=== PATIENT | female | born 1995 | race Caucasian/White ===

== ENCOUNTER 2018-12-28 19:56 | Emergency (ER) | payer MEDICAID ==
--- NOTE | 2018-12-28 20:11 | ERPHSYRPT ---
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 3 days ago pt noticed skin and eyes turning yellow. stools a little clinical audiologist in color and urine darker than usual. pts sig other with same sx. pt works at [employer]. Timing/Duration: day(s) (flu like sx for 7 days ago, jaundice for 3 days. ), gradual onset, worse Severity: moderate Associated Symptoms: nausea, abdominal pain (mild), heartburn, loss of appetite , malaise Allergies/Adverse Reactions: Sulfa (Sulfonamide Antibiotics) Allergy (Verified 12/28/18 20:13) Home Medications: No Reportable Medications [No Reported Medications] 12/28/18 [History] Hx Tetanus, Diphtheria Vaccination/Date Given: Yes (2008) Hx Influenza Vaccination/Date Given: No Hx Pneumococcal Vaccination/Date Given: No - Review of Systems Constitutional: Malaise Eyes: No Symptoms Ears, Nose, & Throat: No Symptoms Respiratory: No Symptoms Cardiac: No Symptoms Abdominal/Gastrointestinal: No Symptoms Genitourinary Symptoms: No Symptoms Musculoskeletal: No Symptoms Skin: Other (jaundice) Neurological: No Symptoms Psychological: Drug Abuse Endocrine: No Symptoms Hematologic/Lymphatic: No Symptoms Immunological/Allergic: No Symptoms All Other Systems: Reviewed and Negative - Past Medical History Pertinent Past Medical History: Yes Neurological History: No Pertinent History ENT History: No Pertinent History Cardiac History: No Pertinent History Respiratory History: No Pertinent History Endocrine Medical History: No Pertinent History Musculoskeletal History: No Pertinent History GI Medical History: GERD, Gallbladder Disease History: No Pertinent History Psycho-Social History: Anxiety, Depression, Panic Disorder Female Reproductive Disorders: No Pertinent History - Past Surgical History Past Surgical History: No - Social History Smoking Status: Current every day smoker Exposure to second hand smoke: Yes Drug Use: none Patient Lives Alone: No - Nursing Vital Signs Nursing Vital Signs: Initial Vital Signs Temperature 98.2 F 12/28/18 20:14 Pulse Rate 98 H 12/28/18 20:14 Respiratory Rate 18 12/28/18 20:14 Blood Pressure 132/82 12/28/18 20:14 O2 Sat by Pulse Oximetry 98 12/28/18 20:14 Pain Scale Pain Intensity 0 - Physical Exam General Appearance: no apparent distress, alert, anxiety Eye Exam: PERRL/EOMI, scleral icterus Ears, Nose, Throat Exam: normal ENT inspection, moist mucous membranes Neck Exam: normal inspection, non-tender, supple, full range of motion Respiratory Exam: normal breath sounds, lungs clear, airway intact, No chest tenderness, No respiratory distress Cardiovascular Exam: regular rate/rhythm, normal heart sounds, normal peripheral pulses Gastrointestinal/Abdomen Exam: soft, normal bowel sounds, tenderness (mild epigastric), No guarding Pelvic Exam: not done Rectal Exam: not done Back Exam: normal inspection, normal range of motion, No CVA tenderness, No vertebral tenderness Extremity Exam: normal inspection, normal range of motion, pelvis stable Neurologic Exam: alert, oriented x 3, cooperative, abstractor II-XII nml as tested Skin Exam: jaundice Lymphatic Exam: No adenopathy SpO2 Interpretation: normal O2 Delivery: Room Air - Course Nursing assessment & vital signs reviewed: Yes Ordered Tests: Active Orders 24 hr Category Date Time Status IV Insertion STAT Care 12/28/18 20:50 Active ABDOMEN AND PELVIS W/0 CONTRAS [CT] Stat Exams 12/28/18 20:51 Taken AMYLASE Stat Lab 12/28/18 21:49 Completed CBC W DIFF Stat Lab 12/28/18 21:49 Completed CMP Stat Lab 12/28/18 21:49 Completed HCG,QUALITATIVE URINE Stat Lab 12/28/18 21:06 Completed LIPASE Stat Lab 12/28/18 21:49 Completed Lactic Acid Stat Lab 12/28/18 20:14 Completed Manual Differential NC Stat Lab 12/28/18 21:49 Completed Hubbard Screen Stat Lab 12/28/18 21:49 Completed UA W/RFX UR CULTURE Stat Lab 12/28/18 21:06 Completed Medication Summary Discontinued Medications Generic Name Dose Route Start Last Admin Trade Name Freq PRN Reason Stop Dose Admin Famotidine 20 mg 12/28/18 20:50 12/28/18 21:56 Pepcid 20 Mg Vial IV 12/28/18 20:51 20 mg STAT ONE Administration Famotidine Confirm 12/28/18 21:53 Pepcid 20 Mg Vial Administered 12/28/18 21:54 Dose 20 mg IV .STK-MED ONE Sodium Chloride 1,000 mls @ 999 mls/hr 12/28/18 20:50 12/28/18 21:57 Sodium Chloride 0.9% 1000 Ml IV 12/28/18 21:50 999 mls/hr .Q1H1M STA Administration Sodium Chloride Confirm 12/28/18 21:53 Sodium Chloride 0.9% 1000 Ml Administered 12/28/18 21:54 Dose 1,000 mls @ ud .ROUTE .STK-MED ONE Lab/Rad Data: Laboratory Result Diagrams 12/28/18 21:49 12/28/18 21:49 Laboratory Results 12/28/18 12/28/18 12/28/18 Range/Units 21:49 21:49 21:49 WBC 5.9 (4.0-10.5) K/mm3 RBC 5.01 (4.1-5.4) M/mm3 Hgb 13.1 (12.0-16.0) gm/dl Hct 39.6 (35-47) % MCV 79.0 (78-100) fl MCH 26.1 (26-32) pg MCHC 33.1 (32-36) g/dl RDW 14.8 H (11.5-14.0) % Plt Count 263 (150-450) K/mm3 MPV 11.6 H (6-9.5) fl Sodium 142 (137-145) mmol/L Potassium 4.5 (3.5-5.1) mmol/L Chloride 108 H (98-107) mmol/L Carbon Dioxide 25 (22-30) mmol/L Anion Gap 12.7 (5-15) MEQ/L BUN 5 L (7-17) mg/dL Creatinine 0.68 (0.52-1.04) mg/dL Estimated GFR > 60.0 ML/MIN Glucose 93 (74-106) mg/dL Lactic Acid (0.4-2.0) Calcium 9.8 (8.4-10.2) mg/dL Total Bilirubin 7.70 H (0.2-1.3) mg/dL AST 395 H (14-36) U/L ALT 990 H (0-35) U/L Alkaline Phosphatase 349 H (38-126) U/L Serum Total Protein 8.1 (6.3-8.2) g/dL Albumin 4.0 (3.5-5.0) g/dL Amylase 74 (30-110) U/L Lipase 81 (23-300) U/L Urine Color (YELLOW) Urine Appearance (CLEAR) Urine pH (5-6) Ur Specific [place] (1.005-1.025) Urine Protein (Negative) Urine Ketones (NEGATIVE) Urine Blood (0-5) Oskar/ul Urine Nitrite (NEGATIVE) Urine Bilirubin (NEGATIVE) Urine Urobilinogen (0-1) mg/dL Ur Leukocyte Esterase (NEGATIVE) Urine WBC (Auto) (0-5) /HPF Urine RBC (Auto) (0-2) /HPF U Epithel Cells (Auto) (FEW) /HPF Urine Bacteria (Auto) (NEGATIVE) /HPF Urine Culture Reflexed (NO) Urine Glucose (NEGATIVE) mg/dL Urine HCG, Qual (Negative) Monoscreen POSITIVE (Negative) 12/28/18 12/28/18 12/28/18 Range/Units 21:06 21:06 20:14 WBC (4.0-10.5) K/mm3 RBC (4.1-5.4) M/mm3 Hgb (12.0-16.0) gm/dl Hct (35-47) % MCV (78-100) fl MCH (26-32) pg MCHC (32-36) g/dl RDW (11.5-14.0) % Plt Count (150-450) K/mm3 MPV (6-9.5) fl Sodium (137-145) mmol/L Potassium (3.5-5.1) mmol/L Chloride (98-107) mmol/L Carbon Dioxide (22-30) mmol/L Anion Gap (5-15) MEQ/L BUN (7-17) mg/dL Creatinine (0.52-1.04) mg/dL Estimated GFR ML/MIN Glucose (74-106) mg/dL Lactic Acid 1.1 (0.4-2.0) Calcium (8.4-10.2) mg/dL Total Bilirubin (0.2-1.3) mg/dL AST (14-36) U/L ALT (0-35) U/L Alkaline Phosphatase (38-126) U/L Serum Total Protein (6.3-8.2) g/dL Albumin (3.5-5.0) g/dL Amylase (30-110) U/L Lipase (23-300) U/L Urine Color SHANE (YELLOW) Urine Appearance CLEAR (CLEAR) Urine pH 6.0 (5-6) Ur Specific [place] 1.003 (1.005-1.025) Urine Protein NEGATIVE (Negative) Urine Ketones NEGATIVE (NEGATIVE) Urine Blood NEGATIVE (0-5) Oskar/ul Urine Nitrite NEGATIVE (NEGATIVE) Urine Bilirubin NEGATIVE (NEGATIVE) Urine Urobilinogen NEGATIVE (0-1) mg/dL Ur Leukocyte Esterase NEGATIVE (NEGATIVE) Urine WBC (Auto) NONE (0-5) /HPF Urine RBC (Auto) NONE (0-2) /HPF U Epithel Cells (Auto) NONE (FEW) /HPF Urine Bacteria (Auto) NONE (NEGATIVE) /HPF Urine Culture Reflexed NO (NO) Urine Glucose NEGATIVE (NEGATIVE) mg/dL Urine HCG, Qual NEGATIVE (Negative) Monoscreen (Negative) - Progress Progress: improved, pain not gone completely Progress Note: 12/28/18 22:59 ct scan abd/pelvis-prominent liver mild nonspecific periportal edema 12/28/18 23:02 i reviewed lab and xray results. pt stated she has a h/o chronic anemia-low hemoglobin Counseled pt/family regarding: lab results, diagnosis, need for follow-up, rad results - Departure Departure Disposition: Home Clinical Impression: Viral illness, Mononucleosis, Elevated liver enzymes, Anemia Condition: Stable Critical Care Time: No Additional Instructions: follow up with primary doctor for further management and to obtain hepatitis profile results. drink plenty of fluids. do not go to work until cleared by primary doctor.
[2018-12-28 20:22] VITALS: O2SAT 98
[2018-12-28] MEDS ORDERED: Pepcid 20 MG VIAL IV ONE ×2 (20:50→21:53)
[2018-12-28] MEDS ORDERED: Sodium Chloride 0.9% 1000 ML 1,000 ML IV STA (20:50)
[2018-12-28 21:14] LABS: Appearance CLEAR (CLEAR); Bilirubin NEGATIVE (NEGATIVE); Blood NEGATIVE Ery/ul (0-5); Glucose NEGATIVE (NEGATIVE); Ketones NEGATIVE (NEGATIVE); Leukocyte Esterase NEGATIVE (NEGATIVE); Nitrite NEGATIVE (NEGATIVE); Protein,Urine Dip NEGATIVE (Negative); Specific Gravity 1.003 (1.005-1.025); Urobilinogen NEGATIVE mg/dL (0-1)
[2018-12-28 21:48] LABS: Hematocrit 39.6 % (35-47); Hemoglobin 13.1 gm/dl (12.0-16.0); Mean Corpuscular Hemoglobin 26.1 pg (26-32); Mean Corpuscular Hgb Concent. 33.1 g/dl (32-36); Mean Platelet Volume 11.6 fl (6-9.5); Platelet Count 263 K/mm3 (150-450); Red Blood Count 5.01 M/mm3 (4.1-5.4); Red Cell Distribution Width 14.8 % (11.5-14.0); White Blood Count 5.9 K/mm3 (4.0-10.5)
[2018-12-28] MEDS ORDERED: Sodium Chloride 0.9% 1000 ML 1,000 ML ONE (21:53)
[2018-12-28 21:58] LABS: ALKALINE PHOSPHATASE 349 U/L (38-126); AMYLASE 74 U/L (30-110); ANION GAP 12.7 MEQ/L (5-15); BLOOD UREA NITROGEN 5 mg/dL (7-17); CHLORIDE 108 mmol/L (98-107); Calcium 9.8 mg/dL (8.4-10.2); Carbon Dioxide 25 mmol/L (22-30); Creatinine 1 0.68 mg/dL (0.52-1.04); Glucose 93 mg/dL (74-106); LIPASE 81 U/L (23-300); Potassium 4.5 mmol/L (3.5-5.1); SGOT/AST 395 U/L (14-36); SODIUM 142 mmol/L (137-145); Total Protein 8.1 g/dL (6.3-8.2)
[2018-12-28 22:05] LABS: SGPT/ALT 990 U/L (0-35)
[2018-12-28 23:10] VITALS: BP 107/71; PULSE 76
[2018-12-28 23:49] LABS: ANISOCYTOSIS RARE; Eosinophil 3 % (0.00-3.0); Lymphocytes 37 % (24-44); Monocyte 8 % (0.0-12.0); Neutrophils 52 % (36.0-66.0); Platelet Estimate NORMAL (NORMAL); Poikilocytosis RARE; Targert Cells RARE; Total Cells Counted 100
--- NOTE | 2018-12-29 07:52 | XRAY ---
Indication: Flu symptoms. Multiple contiguous axial images obtained through the abdomen and pelvis without contrast as ordered. Comparison: None Lung bases are clear. Heart is not enlarged. Stomach is distended with food/fluid. Noncontrasted stomach and bowel loops appear nonobstructed. Normal air-filled appendix. Gallbladder contracted without gallstones. Spleen is enlarged measuring 14 cm in greatest axial dimension. Liver is enlarged measuring 20.4 cm in CC dimension. Tiny cul-de-sac fluid presumed physiologic from rupture/leaking cyst. Remaining liver, pancreas, spleen, adrenal glands, kidneys, ureters, bladder, uterus, and aorta appear unremarkable for noncontrast exam. Osseous structures intact. Impression: 1. Hepatosplenomegaly. 2. Tiny cul-de-sac fluid presumed physiologic. 3. Remaining CT abdomen/pelvis without contrast exam is negative. Comment: Preliminary interpretation was made by [facility]. No critical discrepancy. CTDI 18.90
[2018-12-29 21:23] LABS: HEPATITIS B VIRUS CORE TOT AB Non Reactive (Non Reactive); HEPATITIS C VIRUS ANTIBODY Non Reactive (Non Reactive); Hepatitis B Surface Ab.Quant. 4.87 mIU/mL (0.00-8.49); Hepatitis B Surface Antigen Non Reactive (Non Reactive)
[2018-12-30 10:23] LABS: HEPATITIS A IGM Reactive (Non Reactive)
== END 2018-12-28 23:30 | disposition home or self-care (01) ==
LOC: ED 19:56
DX: B34.9 Viral infection, unspecified (principal); R74.8 Abnormal levels of other serum enzymes; D64.9 Anemia, unspecified
CPT/HCPCS: 36000; 36415; 74176; 80053; 80074; 81001; 82150; 83605; 83690; 84703; 85025; 86308; 96360; 96374; 99284